=== PATIENT | male | born 1940 | race Caucasian/White ===

== ENCOUNTER 2020-03-21 18:08 | Inpatient (IN) ==
[2020-03-21] MEDS ORDERED: SODIUM CHLORIDE 0.9% 500 ML IV SCH (18:45)
--- NOTE | 2020-03-21 18:45 | Emergency Department Note ---
Impression & Plan Dysphagia ED Provider Note INFORMANT: [Patient] ED PROVIDER(S): See Balderas MD CHIEF COMPLAINT: Difficulty swallowing PLAN: Disposition: Admitted Condition: [Good] MEDICAL DECISION MAKING: Patient presented emerge department because of dysphasia. On physical examination he did have some fullness in the right neck. He had blood work and imaging ordered. ECG revealed a normal sinus rhythm. His CBC showed a slight leukocytosis. Chemistry panel was unremarkable. CT imaging of the neck raised concerns for significant mass on the right side of the thyroid extending into the superior mediastinum. It appears to displace the esophagus. This raises concerns that the mass is the cause for the dysphasia. Radiology also noted a clotted appearance to the left vertebral. The patient does not have any significant symptoms to suggest VBI or CVA. 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 Given his inability to swallow and eat adequately I discussed further management in the hospital. The patient and were in agreement. [facility] The patient was evaluated in the ER by for further management. Triage Nursing notes reviewed and agree them. [Additional history obtained from] patient's Vital Signs: reviewed and remarkable for [no significant abnormalities] Differential diagnosis: Esophageal stricture, mass, esophageal rupture, GERD, cholecystitis, pancreatitis, musculoskeletal, as well as other pathologies. Diagnostics interpreted by me: ECG: Rate: 67 Rhythm:Normal sinus Barnhart:Normal QRS:Normal ST segements:No elevation or depression Other:No PACs or PVCs Cardiac Monitoring:Cardiac monitoring ordered by me: The patient was placed on continuous cardiac monitoring and observed. It revealed a normal sinus rhythm at 71beats per minute without ectopy or evidence of dysrhythmia. Imaging studies: Chest x-ray. Findings: A chest x-ray was performed and revealed no pneumothorax, effusion, infiltrate, pulmonary edema, free air under the diaphragm, or wide mediastinum. Moderate cardiomegaly noted. Impression: No acute disease. CT imaging of the neck revealed a large mass in the right thyroid. I refer you to the EMR for further details. [facility]ation[facility] HPI: The patient is a 80 year old male who presents to the Emergency Room with complaints of weeks of difficulty swallowing solids. Liquids go fine. The patient also notes the following associated symptoms, mild SOB for months. The patient has found no relieving factors. Current pain is rated as 0/10. He is supposed to have an EGD 8/3 but doesn't feel he can wait. Pt denies LOC, hea dache, fevers, chills, diaphoresis, visual changes, neck pain, chest pain, breathing difficulties, nausea, vomiting, abdominal pain, back pain, melena, hematochezia, urinary symptoms, numbness, weakness, lymphadenopathy, rash, or other complaints. ROS: See above HPI for pertinent positives & negatives. A total of [10] systems reviewed and were otherwise negative. PAST MEDICAL HISTORY:[See Below] HTN, Cholesterol PAST SURGICAL HISTORY:[See Below] FAMILY HISTORY:[See Below] SOCIAL HISTORY:[See Below]. HOME MEDICATIONS:[See Below] ALLERGIES:[See Below] VITALS:[See Below] PHYSICAL EXAMINATION: GENERAL: Awake, alert, well-appearing, in no distress HENT: Normocephalic, atraumatic. Oropharynx unremarkable. EYES: Normal conjunctiva. Sclera non-icteric. NECK: Inspection normal. Non-tender. Supple. No nuchal rigidity. FROM. No masses. RESPIRATORY: Clear to auscultation. No wheezes. No rales. Normal respiratory effort. CARDIAC: Normal rate. Normal rhythm. No murmurs. No rubs. Extremities warm and well perfused. Pulses equal. No JVD. GI: Soft, non-distended. No tenderness to palpation. No rebound or guarding. No masses. RECTAL: Deferred. MUSCULOSKELETAL: Atraumatic. Chest examination reveals no tenderness. The back is symmetrical on inspection without obvious abnormality. There is no CVA tenderness to palpation. No joint edema. LOWER EXTREMITIES: Calves are equal size bilaterally and non-tender. Trace edema. No discoloration. NEURO: Normal sensorium. No sensory or motor deficits noted. SKIN: No rash or jaundice noted. ED COURSE: PDMP:[reviewed and no issues] [Critical Care:] [None] See Balderas MD Past Med/Surg History Social History Smoking Status: Never smoker Hx Alcohol Use: Yes Alcohol type: beer Hx Substance Use: No Preferred Language: Wolof Communication Ability: Effective Geophysical Data Technician Required: No Beliefs That Will Affect Care: None Current Living Situation: Spouse and Family Other Information That Helps Us Care for You: No Feels Safe at Home: Yes Safety Concerns: Feels Safe At This Time Allergies Allergies Allergy/AdvReac Type Severity Reaction Status Date / Time Qhzmnlm-[id number]-Vxn Reductase Allergy Severe MUSCLE AND Verified 03/21/20 19:12 Inhibitor JOINT PAIN nifedipine [From Procardia] Allergy Intermediate ITCHY HIVES Verified 03/21/20 19:12 Home Meds Home Medications Medication Instructions Recorded Confirmed allopurinol 100 mg PO DAILY 03/21/20 03/21/20 amlodipine-benazepril 1 cap PO DAILY 03/21/20 03/21/20 colesevelam 1,250 mg PO DAILY 03/21/20 03/21/20 ergocalciferol (vitamin D2) 1,250 mcg PO MONTHLY 03/21/20 03/21/20 [Vitamin D2] ezetimibe [Zetia] 10 mg PO DAILY 03/21/20 03/21/20 hydrochlorothiazide 12.5 mg PO 3XWK 03/21/20 03/21/20 metoprolol succinate 50 mg PO DAILY 03/21/20 03/21/20 pantoprazole 20 mg PO DAILYBB 03/21/20 03/21/20 Results & Data (ED) Vital Signs Vital Signs - 24 hr 03/21/20 18:10 03/21/20 19:08 03/21/20 19:31 Temperature 36.8 C Temperature Source Oral Pulse Rate 87 66 69 Pulse Rate [Right Finger] Pulse Rate from SpO2 Sensor 65 69 Pulse Rhythm Regular Pulse Strength Normal Respiratory Rate 20 17 16 Respiratory Effort / Characteristics Non-Labored Spontaneous Respiratory Depth Normal Respiratory Pattern Regular Blood Pressure 169/103 H Blood Pressure [Right Arm] Blood Pressure Mean 125 Blood Pressure Mean [Right Arm] Blood Pressure Position Sitting Pulse Oximetry 169 H 97 97 Oxygen Delivery Method Room Air Sepsis Recent Fever Within 48 Hours No Sepsis New/Unexplained Change in Mental Status N/A Sepsis Action Taken by Nursing No Action Required 03/21/20 19:48 03/21/20 19:50 03/21/20 20:01 Temperature Temperature Source Pulse Rate 67 65 62 Pulse Rate [Right Finger] Pulse Rate from SpO2 Sensor 68 64 61 Pulse Rhythm Pulse Strength Respiratory Rate 17 14 13 Respiratory Effort / Characteristics Respiratory Depth Respiratory Pattern Blood Pressure Blood Pressure [Right Arm] Blood Pressure Mean Blood Pressure Mean [Right Arm] Blood Pressure Position Pulse Oximetry 96 97 98 Oxygen Delivery Method Sepsis Recent Fever Within 48 Hours Sepsis New/Unexplained Change in Mental Status Sepsis Action Taken by Nursing 03/21/20 20:10 03/21/20 22:01 Temperature Temperature Source Pulse Rate 61 Pulse Rate [Right Finger] 85 Pulse Rate from SpO2 Sensor 62 Pulse Rhythm Pulse Strength Respiratory Rate 17 19 Respiratory Effort / Characteristics Respiratory Depth Respiratory Pattern Blood Pressure Blood Pressure [Right Arm] 128/85 Blood Pressure Mean Blood Pressure Mean [Right Arm] 99 Blood Pressure Position Pulse Oximetry 96 96 Oxygen Delivery Method Sepsis Recent Fever Within 48 Hours Sepsis New/Unexplained Change in Mental Status Sepsis Action Taken by Nursing Laboratory Data Result diagrams: 03/21/20 19:04 03/21/20 19:04 Lab Results 03/21/20 03/21/20 Range/Units 19:04 19:04 WBC 11.15 H (4.8-10.8) K/uL RBC 5.36 (4.7-6.1) M/uL Hgb 16.3 (14.0-18.0) g/dL Hct 47.2 (42-52) % MCV 88.1 (80-100) fL MCH 30.4 (25-34) pg MCHC 34.5 (32-36) g/dL RDW Std Deviation 44.0 (36.4-46.3) fL RDW Coeff of Davie 13.6 (11.5-14.5) % Plt Count 224 (130-400) K/uL MPV 9.4 (7.4-10.4) fL Immature Gran % (Auto) 0.7 % Neut % (Auto) 71.0 % Lymph % (Auto) 18.7 % Bath % (Auto) 8.5 % Eos % (Auto) 1.0 % Baso % (Auto) 0.1 % Neut # (Auto) 7.91 H (1.4-6.5) K/uL Lymph # (Auto) 2.09 (1.2-3.4) K/uL Bath # (Auto) 0.95 H (0.11-0.59) K/uL Eos # (Auto) 0.11 (0-0.5) K/uL Baso # (Auto) 0.01 (0-0.2) K/uL Immature Gran # (Auto) 0.08 H (0.00-0.02) K/uL Sodium 141 (136-145) mmol/L Potassium 3.9 (3.5-5.1) mmol/L Chloride 107 (98-107) mmol/L Carbon Dioxide 26 (21-32) mmol/L Anion Gap 8.0 (3-11) BUN 20 H (7-18) mg/dl Creatinine 1.36 (0.6-1.4) mg/dl Est Cr Clr Drug Dosing 58.8 ml/min Est GFR ( Amer) 57.0 Est GFR (Non-Af Amer) 49.1 BUN/Creatinine Ratio 14.8 (10-20) Glucose 100 H (70-99) mg/dl Calcium 8.8 (8.5-10.1) mg/dl Magnesium 2.1 (1.8-2.4) mg/dl Total Bilirubin 0.7 (0.2-1) mg/dl AST 15 (15-37) U/L ALT 25 (12-78) U/L Alkaline Phosphatase 185 H (45-117) U/L Total Protein 7.2 (6.4-8.2) gm/dl Albumin 3.5 (3.4-5.0) gm/dl Globulin 3.7 (2.5-4.0) gm/dl Albumin/Globulin Ratio 0.9 (0.9-2) TSH 4.400 (0.300-4.500) uIu/ml Administered Medications Dextrose/Sodium Chloride (D5w And Nss) 1,000 mls @ 100 mls/hr IV .Q10H SHOSHANA Stop: 04/20/20 23:40 Last Admin: 03/22/20 00:29 Dose: 100 mls/hr Documented by: [id number] Miscellaneous (Order Awaiting Action) 1 ea N/A QS SHOSHANA Stop: 04/21/20 00:00 Last Admin: 03/22/20 00:32 Dose: Not Given Documented by: [id number] Discontinued Medications Sodium Chloride (Nss) 500 mls @ 999 mls/hr IV .Q31M SHOSHANA Stop: 03/21/20 19:15 Last Infusion: 03/21/20 19:37 Dose: 0 mls/hr Documented by: [id number] Admin: 03/21/20 19:07 Dose: 999 mls/hr Documented by: [id number] Ioversol (Optiray 320 100ml) 90 ml IV ONCE PRN PRN Reason: Interaction Checking Stop: 03/25/20 19:43 Last Admin: 03/21/20 19:44 Dose: 90 ml Documented by: [id number] Discharge Plan Visit Data *Final* Discharge Date/Time: 03/21/20 23:12 Chief Complaint: Illness Stated Complaint: DIFFICULTY SWALLOWING ED Provider: See Balderas Discharge Problem: Dysphagia Patient Disposition: Admitted As Inpatient Discharge Instructions Interventions: ED Discharge Assessment Last Done: 03/21/20 23:12
[2020-03-21 19:11] LABS: Basophils # (auto) 0.01 K/uL (0-0.2); Basophils % (auto) 0.1 %; Eosinophils # (auto) 0.11 K/uL (0-0.5); Hematocrit (blood only) 47.2 % (42-52); Hemoglobin 16.3 g/dL (14.0-18.0); Immature Granulocytes # (auto) 0.08 K/uL (0.00-0.02); Immature Granulocytes % (auto) 0.7 %; Lymphocytes # (auto) 2.09 K/uL (1.2-3.4); Lymphocytes % (auto) 18.7 %; Mean Corpuscular Hemoglobin 30.4 pg (25-34); Mean Corpuscular Hgb Conc 34.5 g/dL (32-36); Mean Corpuscular Volume 88.1 fL (80-100); Mean Platelet Volume 9.4 fL (7.4-10.4); Monocytes # (auto) 0.95 K/uL (0.11-0.59); Monocytes % (auto) 8.5 %; Neutrophils # (auto) 7.91 K/uL (1.4-6.5); Platelet Count 224 K/uL (130-400); RDW Coefficient of Variation 13.6 % (11.5-14.5); Red Blood Count 5.36 M/uL (4.7-6.1); White Blood Count 11.15 K/uL (4.8-10.8)
[2020-03-21 19:28] LABS: Albumin Level 3.5 gm/dl (3.4-5.0); BUN Creatinine Ratio 14.8 (10-20); Calcium 8.8 mg/dl (8.5-10.1); Creatinine Clr Calc Pharmacy 58.8 ml/min; Est GFR (Non-African American) 49.1; Magnesium 2.1 mg/dl (1.8-2.4); Potassium 3.9 mmol/L (3.5-5.1)
--- NOTE | 2020-03-21 19:38 | XRay Report ---
SINGLE VIEW CHEST CLINICAL HISTORY: Generalized weakness. FINDINGS: 2 AP, portable, upright chest radiographs are obtained. No prior studies are available for comparison at the time of dictation. The examination is degraded by portable technique and patient ro tation. The heart is enlarged noting atherosclerotic calcification of the thoracic aorta. There is m ild pulmonary vascular congestion. 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 Atelectasis is noted at the lung bases. No airspace consolidation or lar ge pleural effusion is identified. No pneumothorax is seen. The skeletal structures are osteopenic. T he bony thorax is grossly intact. IMPRESSION: Cardiomegaly with mild pulmonary vascular congestion. ACT 112: Negative or not required by law. Electronically signed by: Brenden Crouch M.D. 03/21/2020 7:36 PM
[2020-03-21 19:39] LABS: Albumin Globulin Ratio 0.9 (0.9-2); Bilirubin,Total 0.7 mg/dl (0.2-1); Globulin 3.7 gm/dl (2.5-4.0); Thyroid Stimulating Hormone 4.4 uIu/ml (0.300-4.500); Total Protein 7.2 gm/dl (6.4-8.2)
[2020-03-21] MEDS ORDERED: IOVERSOL 100ml IV PRN (19:44)
--- NOTE | 2020-03-21 20:00 | CT Scan Report ---
CT SCAN OF THE NECK WITH IV CONTRAST CLINICAL HISTORY: Dysphagia. COMPARISON STUDY: No priors. TECHNIQUE: Following the IV administration of 90 cc of Optiray 320, CT scan of the soft tissues of th e neck was performed from the skull base to the upper chest. Images are reviewed in the axial, sagitt al, and coronal planes. IV contrast was administered without complication. A dose lowering techniqu e was utilized adhering to the principles of ALARA. CT DOSE: 696.75 mGy.cm FINDINGS: Pharynx: The nasopharynx, oropharynx, and laryngeal pharynx are normal in appearance. The pharyngeal airway is widely patent. There is no evidence of mass lesion. The vocal cords are symmetric. The para pharyngeal fat is well maintained. The prevertebral/retropharyngeal soft tissues are within normal li mits. The epiglottis is normal. Lymphadenopathy: No cervical lymphadenopathy is seen Thyroid: The right lobe of the thyroid gland is enlarged and heterogeneous. A 4.5 cm nodule extends i nferiorly from the right lobe into the superior mediastinum. Salivary glands: The parotid and submandibular glands are within normal limits. Brain parenchyma: The visualized brain parenchyma at the skull base is normal in appearance. Vascular structures: The carotid arteries and jugular veins are patent bilaterally. Atherosclerotic p laque is seen in the carotid bulbs. 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 This is reconstituted via retrograde flow below the basilar. The left vertebral artery in the neck is diminutive but patent. Skeletal structures: The skeletal structures are osteopenic. Imaged portions of the calvarium at the skull base are within normal limits. The cervical spine appears intact noting multilevel spondylosis. No lytic or blastic lesion is seen. Orbits: The bony orbits are intact. Orbital contents are normal as visualized. Sinuses and mastoids: There is trace mucosal thickening within the right maxillary antrum. The remain ing paranasal sinuses are clear. The mastoid air cells are well pneumatized. Lung apices: There is a punctate calcified granuloma at the left apex. Visualized apical lung parench yma is otherwise clear. IMPRESSION: 1. The pharyngeal soft tissues are normal as imaged. 2. The right lobe of the thyroid gland is enlarged and heterogeneous, with a 4.5 cm nodule extending inferiorly from the right lobe into the superior mediastinum. Consider nonemergent follow-up with a d edicated thyroid ultrasound. 3. 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 This is of indeterminate chronicity. 4. Additional findings as above. ACT 112: Negative or not required by law. Electronically signed by: Brenden Crouch M.D. 03/21/2020 7:59 PM
[2020-03-21] MEDS ORDERED: ONDANSETRON INJ 2 MG/ML 2 ML VIAL IV PRN (23:41)
[2020-03-21] MEDS ORDERED: ACETAMINOPHEN 325 MG TAB PO PRN (23:41)
[2020-03-22] MEDS: D5W AND NSS 1,000 ML IV SCH ×2 (00:29→09:48)
[2020-03-22] MEDS: COLESEVELAM~ORDER AWAITING ACTION SCH ×3 (00:32→17:15)
[2020-03-22 02:56] LABS: Appearance Urine Clear (Clear); Bacteria Urine Automated Negative (Negative); Bilirubin Urine Negative (Negative); Blood Urine Trace (Negative); Cast Urine Automated 0 /lpf (0-5); Color Urine Yellow; Glucose Urine UA Negative (Negative); Ketones Urine 1+ (Negative); Leukocyte Esterase Urine Negative (Negative); Nitrite Urine Negative (Negative); Protein Urine Negative (Negative); RBC Urine Automated 0-4 /hpf (0-4); Specific Gravity Urine > 1.045 (1.000-1.030); Urobilinogen Urine Negative (Negative); WBC Urine Automated 0 /hpf (0-5)
--- NOTE | 2020-03-22 04:01 | History and Physical Report ---
DATE OF ADMISSION: 03/21/2020 CHIEF COMPLAINT: Dysphagia for solids. HISTORY OF PRESENT ILLNESS: This is a 80-year-old male with past medical history significant for gout, hypertension, hyperlipidemia, GERD, who lives with his , who presents with dysphagia. As per the , dysphagia is going on for more than a month, it is mostly for solids. She thinks, he lost about 10-15 pounds in last 1 month eating only one meal a day. He is okay with liquids, but he is having difficulty swallowing the solids. He has an appointment with GI on 03/29/2020, but because he is not getting better, he came to the ER. Currently, resting comfortably and hemodynamically stable. The patient denies any chest pain. He has some shortness of breath on exertion. No nausea, no vomiting, no headache, no blurred vision, no earache, no runny nose, no sore throat. No loss of sense of smell or taste. No fever, no chills, no abdominal pain. Normal bowel and bladder movements. No hematuria, no blood in stools or black stools. 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 He says he does not feel his left leg much and that is nothing new . ALLERGIES: STATINS, HMG-REDUCTASE INHIBITORS, NIFEDIPINE. PAST MEDICAL HISTORY: As mentioned above. 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 MEDICATIONS: The patient is on allopurinol 100 mg p.o. daily, amlodipine/benazepril 1 capsule p.o. daily, colesevelam 1250 mg p.o. daily, vitamin D 1250 mcg p.o. monthly, Zetia 10 mg p.o. daily, hydrochlorothiazide 12.5 mg p.o. 3 times a week, metoprolol succinate 50 mg p.o. daily, Protonix 20 mg p.o. daily. FAMILY HISTORY: No family history on file. SOCIAL HISTORY: , lives with . No smoking, no alcohol, no drug use. REVIEW OF SYMPTOMS: As per HPI. Rest of review of systems negative. PHYSICAL EXAMINATION: GENERAL: The patient is of moderate build, not in acute distress. VITAL SIGNS: Temperature 36.8, pulse 85, respiratory rate 19, blood pressure 128/85, oxygen 96% on room air. HEENT: No pallor, no icterus. Pupils equal, round, reactive to light. Oral mucosa moist. NECK: . No JVD, no carotid bruits. CARDIOVASCULAR: S1, S2, heard, regular rate and rhythm, no murmur, no gallop. RESPIRATORY SYSTEM: Normal AP diameter. No accessory muscle use. No wheezing, no crackles. ABDOMEN: Soft, bowel sounds present, nontender. No distention. CENTRAL NERVOUS SYSTEM: Cranial nerves II-XII grossly intact, nonfocal. EXTREMITIES: No edema, no erythema. LABORATORY DATA: WBC 11.1, hemoglobin 16.3, hematocrit 47.2, platelets 224. Sodium 141, potassium 3.9, chloride 107, bicarbonate 26, BUN 20, creatinine 1.36, serum glucose 100, calcium 8.8. Magnesium 2.1, total bilirubin 0.7, AST 15, ALT 25, alkaline phosphatase 185. TSH 4.4. IMAGING: Chest x-ray: Cardiomegaly with mild pulmonary vascular congestion. Soft tissue of the neck shows triangle of soft tissues are normal. The right lobe of thyroid gland is enlarged and heterogeneous with 4.1 cm nodule extending inferiorly from the right lobe into the superior mediastinum. 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 This is of indeterminate chronicity. EKG: Normal sinus rhythm, rate of 67 with no previous EKG available. ASSESSMENT AND PLAN: This is a 80-year-old male who presents with dysphagia to solids. 1. Dysphagia to solids going for more than 1 month now. Images of soft tissue neck shows right thyroid lobe enlarged extending into the superior mediastinum.Probably compressing the esophagus. The patient had no shortness of breath .Ongoing dysphagia to solids. He is able to swallow liquids okay. 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 The patient had surgery back of his neck 20 years ago.Most likely his symptoms could be from the thyroid lobe mass. We will consult ENT and GI. Keep him n.p.o., IV fluids with D5 normal saline 100 mL per hour and monitor in the medical floor. 2. Hypertension. Continue metoprolol and amlodipine, benazepril. Hold his hydrochlorothiazide, monitor the blood pressure. 3. Hyperlipidemia. Continue colesevelam. 4. Gout. Continue allopurinol. 5. Gastroesophageal reflux disease. Continue his Protonix. 6. Deep venous thrombosis prophylaxis, sequential compression devices. DISPOSITION: Observe in medical floor. Expect discharge home and follow with his family doctor. Level 1 full code. MTDD
[2020-03-22 06:19] LABS: Basophils # (auto) 0.03 K/uL (0-0.2); Basophils % (auto) 0.3 %; Eosinophils # (auto) 0.12 K/uL (0-0.5); Eosinophils % (auto) 1.1 %; Hematocrit (blood only) 49.1 % (42-52); Hemoglobin 16.7 g/dL (14.0-18.0); Immature Granulocytes # (auto) 0.08 K/uL (0.00-0.02); Immature Granulocytes % (auto) 0.7 %; Lymphocytes # (auto) 2.27 K/uL (1.2-3.4); Lymphocytes % (auto) 20.8 %; Mean Corpuscular Hemoglobin 30.2 pg (25-34); Mean Corpuscular Volume 88.8 fL (80-100); Mean Platelet Volume 9.2 fL (7.4-10.4); Monocytes # (auto) 1.08 K/uL (0.11-0.59); Monocytes % (auto) 9.9 %; Neutrophils # (auto) 7.32 K/uL (1.4-6.5); Neutrophils % (auto) 67.2 %; Platelet Count 217 K/uL (130-400); RDW Coefficient of Variation 13.7 % (11.5-14.5); RDW Standard Deviation 44.8 fL (36.4-46.3); Red Blood Count 5.53 M/uL (4.7-6.1)
[2020-03-22] MEDS ORDERED: PANTOprazole 40 MG TAB PO SCH (06:30)
[2020-03-22 06:54] LABS: BUN Creatinine Ratio 12.7 (10-20); Calcium 8.9 mg/dl (8.5-10.1); Creatinine Clr Calc Pharmacy 61.6 ml/min; Est GFR (African American) 60.7; Est GFR (Non-African American) 52.4; Magnesium 2.1 mg/dl (1.8-2.4); Potassium 3.6 mmol/L (3.5-5.1)
[2020-03-22 07:30] LABS: INR 1.1 (0.9-1.1); Partial Thromboplastin Time 27.9 Seconds (21.0-31.0); Prothrombin Time 11.6 Seconds (9.0-12.0)
[2020-03-22] MEDS: AMLODIPINE BESYLATE 5 MG TAB PO SCH (09:42)
[2020-03-22] MEDS: ENALAPRIL MALEATE 10 MG TAB PO SCH (09:42)
[2020-03-22] MEDS: EZETIMIBE 10 MG TABLET PO SCH (09:42)
[2020-03-22] MEDS: allopurinoL 100 MG TAB PO SCH (09:42)
[2020-03-22] MEDS: METOPROLOL SUCC 50MG EXT REL TAB PO SCH (09:46)
--- NOTE | 2020-03-22 10:14 | Hospitalist Progress Note ---
Date of Service March 22, 2020 Assessment & Plan (1) Dysphagia: Dysphagia -dysphagia to solids going for more than 1 month now. Images of soft tissue neck shows right thyroid lobe enlarged extending into the superior mediastinum.Probably compressing the esophagus. 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 The patient had surgery back of his neck 20 years ago. -currently is NPO with IV fluids with dextrose and awaiting for evaluation by gastroenterology for upper EGD -ENT consult also requested to evaluate if swallowing symptoms could be from the thyroid lobe mass. Hypertension -Continue metoprolol and amlodipine, benazepril. Hold the hydrochlorothiazide for now Hyperlipidemia -can continue colesevelam. Gout -can continue allopurinol Gastroesophageal reflux disease -can be on Protonix Deep venous thrombosis prophylaxis, sequential compression devices. Admission and Anticipated Discharge Date Admission Date: March 21, 2020 Subjective Main issue is that patient has had difficulties eating food such as sandwiches in the past when he felt like food would be sticking in the throat. he denies problems with swallowing liquids denies choking. no coughing. no shortness of breath. on room air. no chest pain. no dizziness. no headache currently is NPO with IV fluids with dextrose and awaiting for evaluation by gastroenterology for upper EGD Review of Systems Review of Systems: All systems reviewed & are unremarkable except as noted in Subjective Physical Exam Constitutional: comfortable Eyes: PERRL, conjunctivae normal, anicteric sclerae EOM intact bilaterally ENMT: external ear and nose normal, oropharynx normal Neck: trachea midline, no thyromegaly normal visual inspection Respiratory: normal respiratory effort, lungs clear to auscultation Cardiovascular: Rate/Rhythm: + bradycardic Gastrointestinal (Abdomen): normal bowel sounds, soft, nontender, no hepatosplenomegaly Musculoskeletal: Head/Neck/Chest: normocephalic and head atraumatic Neurologic: PERRL, EOMI, accommodation nl, no face palsy, no dysarthria CN's II-XI intact bilaterally Psychiatric: A+Ox3, euthymic affect Results & Data Results & Data ([facility]) Vital Signs (Past 12 Hours) Vital Signs Temp Pulse Resp BP Pulse Ox 03/22/20 08:04 36.7 C 62 16 119/76 95 03/21/20 23:40 36.5 C 68 16 155/89 H 94 03/21/20 23:35 36.5 C 65 16 155/89 H 94
--- NOTE | 2020-03-22 13:58 | Anesthesiology Consultation ---
Date of Service March 22, 2020 Assessment & Plan (1) Encounter for pre-operative examination: History Surgery Operation Date: 03/22/20 14:30 Proposed Procedures p Esophagogastroduodenoscopy Dr Yesi Key Height/Weight Height: 5 ft 11 in Weight: 121.5 kg Allergies Allergy/AdvReac Type Severity Reaction Status Date / Time [id number]-[id number] Reductase Allergy Severe MUSCLE AND Verified 03/21/20 19:12 Inhibitor JOINT PAIN nifedipine [From Procardia] Allergy Intermediate ITCHY HIVES Verified 03/21/20 19:12 Medications Home Medications Medication Instructions Recorded Confirmed Last Taken allopurinol 100 mg PO DAILY 03/21/20 03/21/20 03/21/20 amlodipine-benazepril 1 cap PO DAILY 03/21/20 03/21/20 03/21/20 colesevelam 1,250 mg PO DAILY 03/21/20 03/21/20 03/21/20 ergocalciferol (vitamin D2) 1,250 mcg PO MONTHLY 03/21/20 03/21/20 02/25/20 [Vitamin D2] ezetimibe [Zetia] 10 mg PO DAILY 03/21/20 03/21/20 03/21/20 hydrochlorothiazide 12.5 mg PO 3XWK 03/21/20 03/21/20 03/19/20 metoprolol succinate 50 mg PO DAILY 03/21/20 03/21/20 03/21/20 pantoprazole 20 mg PO DAILYBB 03/21/20 03/21/20 03/21/20 Active Medications Generic Name Dose Route Start Last Admin Trade Name Loraine PRN Reason Stop Dose Admin Allopurinol 100 mg 03/22/20 09:00 03/22/20 09:42 Zyloprim PO 04/21/20 08:59 100 mg DAILY SHOSHANA Administration Amlodipine Besylate 5 mg 03/22/20 09:00 03/22/20 09:42 Norvasc PO 04/21/20 08:59 5 mg DAILY SHOSHANA Administration Ezetimibe 10 mg 03/22/20 09:00 03/22/20 09:42 Zetia PO 04/21/20 08:59 10 mg DAILY SHOSHANA Administration Enalapril Maleate 10 mg 03/22/20 09:00 03/22/20 09:42 Vasotec PO 04/21/20 08:59 10 mg DAILY SHOSHANA Administration Dextrose/Sodium Chloride 1,000 mls @ 60 mls/hr 03/21/20 23:41 03/22/20 13:30 D5w And Nss IV 04/20/20 23:40 0 mls/hr .[id number] SHOSHANA Infusion Metoprolol Succinate 50 mg 03/22/20 09:00 03/22/20 09:46 Toprol Xl PO 04/21/20 08:59 Not Given DAILY SHOSHANA Miscellaneous 1 ea 03/22/20 00:00 03/22/20 09:41 Order Awaiting Action N/A 04/21/20 00:00 Not Given QS SHOSHANA NPO Date Last Intake of Fluids: 03/22/20 Time Last Intake of Fluids: 11:00 Last Intake of Fluids Comment: sips and chips Date Last Intake of Solids: 03/21/20 Time Last Intake of Solids: 08:00 Past Medical History Medical History (Updated 03/22/20 @ 13:56 by Bethany Remy MD) Dysphagia (Acute) Encounter for pre-operative examination GERD (gastroesophageal reflux disease) Gout Hyperlipidemia Hypertension Social History Smoking Status: Never smoker Hx Alcohol Use: Yes Alcohol type: beer alcohol intake frequency: holidays/special occasions only Hx Substance Use: No Physical Exam Vital Signs Last Vital Signs Temp 36.8 C 03/22/20 13:51 Pulse 63 03/22/20 13:51 Resp 18 03/22/20 13:51 BP 125/85 03/22/20 13:51 Pulse Ox 95 03/22/20 13:51 Testing Laboratory Results 03/22/20 06:06 03/22/20 06:06 PT 11.6 Seconds (9.0-12.0) 03/22/20 07:03 INR 1.1 (0.9-1.1) 03/22/20 07:03 APTT 27.9 Seconds (21.0-31.0) 03/22/20 07:03 Urine Color Yellow 03/22/20 02:47 Urine Appearance Clear (Clear) 03/22/20 02:47 Urine pH 7.0 (4.5-7.5) 03/22/20 02:47 Ur Specific Wilder > 1.045 (1.000-1.030) H 03/22/20 02:47 Urine Protein Negative (Negative) 03/22/20 02:47 Urine Glucose (UA) Negative (Negative) 03/22/20 02:47 Urine Ketones 1+ (Negative) H 03/22/20 02:47 Urine Nitrite Negative (Negative) 03/22/20 02:47 Ur Leukocyte Esterase Negative (Negative) 03/22/20 02:47 Urine WBC (Auto) 0 /hpf (0-5) 03/22/20 02:47 Urine RBC (Auto) 0-4 /hpf (0-4) 03/22/20 02:47 U Hyaline Cast (Auto) 0 /lpf (0-5) 03/22/20 02:47 U Epithel Cells (Auto) 5-10 /lpf (0-5) H 03/22/20 02:47 Urine Bacteria (Auto) Negative (Negative) 03/22/20 02:47 Electrocardiogram Date: 03/21/20 Findings: + NSR @ Chest X-Ray Date: 03/21/20 IMPRESSION: Cardiomegaly with mild pulmonary vascular congestion.
[2020-03-22] MEDS ORDERED: LIDOCAINE HCL 2% 2 ML VIAL/AMP(20MG/ML) INFIL ONE (14:40)
[2020-03-22] MEDS ORDERED: PROPOFOL IV EMULSION 10 MG/ML 20 ML VIAL IV ONE (14:40)
[2020-03-22] MEDS ORDERED: SODIUM CHLORIDE 0.9% 1000ML 1,000 ML IV SCH (14:45)
--- NOTE | 2020-03-22 14:55 | History & Physical Report ---
Date of Service March 22, 2020 History of Present Illness Chief Complaint: Dysphagia Primary Care Provider: Krystle Ariza For EGD Allergies Allergy/AdvReac Type Severity Reaction Status Date / Time Avzicli-Fum-Hzu Reductase Allergy Severe MUSCLE AND Verified 03/21/20 19:12 Inhibitor JOINT PAIN nifedipine [From Procardia] Allergy Intermediate ITCHY HIVES Verified 03/21/20 19:12 Home Medications Home Medications Medication Instructions Recorded Confirmed Type allopurinol 100 mg PO DAILY 03/21/20 03/21/20 History amlodipine-benazepril 1 cap PO DAILY 03/21/20 03/21/20 History colesevelam 1,250 mg PO DAILY 03/21/20 03/21/20 History ergocalciferol (vitamin D2) 1,250 mcg PO MONTHLY 03/21/20 03/21/20 History [Vitamin D2] ezetimibe [Zetia] 10 mg PO DAILY 03/21/20 03/21/20 History hydrochlorothiazide 12.5 mg PO 3XWK 03/21/20 03/21/20 History metoprolol succinate 50 mg PO DAILY 03/21/20 03/21/20 History pantoprazole 20 mg PO DAILYBB 03/21/20 03/21/20 History Past Med/Surg History Medical History (Updated 03/22/20 @ 13:56 by Bethany Remy MD) Dysphagia (Acute) Encounter for pre-operative examination GERD (gastroesophageal reflux disease) Gout Hyperlipidemia Hypertension Social History Smoking Status: Never smoker Hx Alcohol Use: Yes Alcohol type: beer Hx Substance Use: No Preferred Language: Dominican Communication Ability: Effective 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 Hand Required: No Beliefs That Will Affect Care: None Current Living Situation: Spouse and Family Other Information That Helps Us Care for You: No Feels Safe at Home: Yes Safety Concerns: Feels Safe At This Time Physical Exam Constitutional: + obese Respiratory: normal respiratory effort Cardiovascular: Rate/Rhythm: regular rate and regular rhythm Gastrointestinal (Abdomen): Percussion/Palpation: abdomen soft Results & Data Vital Signs (Past 12 Hours) Vital Signs Temp Pulse Resp BP Pulse Ox 03/22/20 13:51 36.8 C 63 18 125/85 95 03/22/20 08:04 36.7 C 62 16 119/76 95 Code Status & VTE Plan VTE Prophylaxis Plan VTE Prophylaxis will be ordered: Yes
--- NOTE | 2020-03-22 15:16 | GI REPORT ---
Patient Name: Kwadwo Miranda Procedure Date: 03/22/2020 2:43 PM Date of : 1940 Admit Type: Inpatient Age: 80 Gender: Male Attending MD: Felice Key MD Procedure: Upper GI endoscopy Providers: Felice Key MD Referring MD: Susanne Mccarty Indications: Dysphagia, Weight loss Medicines: Propofol total dose 200 mg IV, Lidocaine 40 mg IV Complications: No immediate complications. Estimated Blood Loss: Estimated blood loss: none. Procedure: Pre-Anesthesia Assessment: - Prior to the procedure, a History and Physical was performed, and patient medications, allergies and sensitivities were reviewed. The patient's tolerance of previous anesthesia was reviewed. - The risks and benefits of the procedure and the sedation options and risks were discussed with the patient. All questions were answered and informed consent was obtained. After obtaining informed consent, the endoscope was passed under direct vision. Throughout the procedure, the patient's blood pressure, pulse, and oxygen saturations were monitored continuously. The Endoscope was introduced through the mouth, and advanced to the second part of duodenum. The upper GI endoscopy was accomplished without difficulty. The patient tolerated the procedure fairly well. Findings: The Z-line was regular and was found 40 cm from the incisors. The examined esophagus was normal. The entire examined stomach was normal. The examined duodenum was normal. A small [obstructing] [Mucosal Involvement] nodule was found at the vocal cords. Impression: - Z-line regular, 40 cm from the incisors. - Normal esophagus. - Normal stomach. - Normal examined duodenum. - A [Mucosal Involvement] nodule was found at the vocal cords. - No specimens collected. Recommendation: - [facility]. - Perform a video esophagram tomorrow. Felice Key M.D. Felice Key MD 03/22/2020 3:15:53 PM This report has been signed electronically. Note Initiated On: 03/22/2020 2:43 PM Number of Addenda: 0 I attest to the content of the Intraoperative Record and orders documented therein, exceptions below {[id number]}
--- NOTE | 2020-03-22 15:36 | Anesthesiology Progress Note ---
Date of Service March 22, 2020 Anesthesia Post Procedure Vital Signs Vital Signs: Temp Pulse Pulse Resp BP BP BP 03/22/20 15:23 67 18 117/73 03/22/20 15:10 64 18 124/80 03/22/20 13:51 36.8 C 63 18 125/85 03/22/20 08:04 36.7 C 62 16 119/76 03/21/20 23:40 36.5 C 68 16 155/89 H 03/21/20 23:35 36.5 C 65 16 155/89 H 03/21/20 22:01 85 19 128/85 03/21/20 20:10 61 17 03/21/20 20:01 62 13 03/21/20 19:50 65 14 03/21/20 19:48 67 17 03/21/20 19:31 69 16 03/21/20 19:08 66 17 03/21/20 18:10 36.8 C 87 20 169/103 H Pulse Ox 03/22/20 15:23 95 03/22/20 15:10 92 03/22/20 13:51 95 03/22/20 08:04 95 03/21/20 23:40 94 03/21/20 23:35 94 03/21/20 22:01 96 03/21/20 20:10 96 03/21/20 20:01 98 03/21/20 19:50 97 03/21/20 19:48 96 03/21/20 19:31 97 03/21/20 19:08 97 03/21/20 18:10 169 H Pain Intensity Generalized: Pain Intensity: 3 Transfer of Care Handoff Completed per policy Notes Mental Status: alert / awake / arousable and participated in evaluation Patient Amnestic to Procedure: Yes Nausea / Vomiting: adequately controlled Pain: adequately controlled Airway Patency, RR, SpO2: stable & adequate BP & HR: stable & adequate Hydration State: stable & adequate Anesthetic Complications: no major complications apparent and Pt Satisfied with anesthetic care
--- NOTE | 2020-03-22 15:43 | Consultation Report ---
DATE OF CONSULTATION: 03/22/2020 GASTROINTESTINAL CONSULTATION NOTE REASON FOR EVALUATION: Dysphagia for solid foods. HISTORY OF PRESENT ILLNESS: The patient is a 80-year-old man who reports greater than 1-month history of dysphagia, but over the last month it has gotten particularly worse, involves mostly solid foods, and he is having to chew his food well and take small bites and he is afraid to eat and he has lost between 10 and 15 pounds just in the last month alone. He did have a soft tissue CT scan of the neck and chest x-ray, it did show a 4.5 cm nodule in the right lobe of the thyroid, which was not compressing the esophagus or trachea, but no other lesions were seen other than the vertebral artery occlusion. He has been admitted because of these symptoms and GI consultation has been requested to help with evaluation. PAST MEDICAL HISTORY: Remarkable for hypertension, gout, hyperlipidemia, esophageal reflux. MEDICATIONS: Allopurinol, amlodipine, benazepril, vitamin D, Zetia, hydrochlorothiazide, metoprolol and Protonix. ALLERGIES: STATINS, HMG REDUCTASE INHIBITORS AND NIFEDIPINE. FAMILY HISTORY: Negative. SOCIAL HISTORY: The patient is and lives with his . Never smoked, drinks alcohol rarely. REVIEW OF SYSTEMS: Remarkable for some anxiety, difficulty swallowing, weight loss. Remainder is negative. PHYSICAL EXAMINATION: GENERAL: The patient appears awake, alert, in no acute distress. VITAL SIGNS: Normal. He is afebrile. NECK: Showed no palpable mass in the thyroid. HEART: Showed a regular rate and rhythm. LUNGS: Clear. ABDOMEN: Soft. EGD was performed in the endoscopy unit to evaluate his symptoms. He did have some small nodules on his vocal cords, but his esophagus was normal caliber and there were no mass lesions or strictures. The stomach and duodenum were also normal. IMPRESSION AND PLAN: The patient is having difficulty swallowing with a negative EGD. 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 For this reason, I plan on ordering a video swallow to see how he handles food and various consistencies when he tries to swallow as there may be a motility or motor disorder predisposing him for his dysphagia.
--- NOTE | 2020-03-22 20:04 | Ultrasound Report ---
US thyroid CLINICAL HISTORY: Thyromegaly COMPARISON STUDY: CT scan of neck dated 03/21/2020 FINDINGS: The right lobe the thyroid measures 57 x 42 x 25 mm. There is a posterior nodule with retro sternal extension which is difficult to visualize due to its location. It measures approximately 5 x 3 x 3 cm. The left lobe measures 51 x 17 x 16 mm and is mildly heterogeneous in echotexture. IMPRESSION: 1. 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 This measure s 5 cm in maximal diameter. Fine-needle aspiration biopsy is recommended in follow-up. ACT 112: Negative or not required by law. Electronically signed by: Nixon Lind M.D. 03/22/2020 8:03 PM
[2020-03-23] MEDS: COLESEVELAM~ORDER AWAITING ACTION SCH ×2 (00:02→08:26)
[2020-03-23] MEDS ORDERED: PANTOprazole 40 MG TAB PO SCH ×2 (06:30→21:00)
[2020-03-23 06:32] LABS: Basophils # (auto) 0.02 K/uL (0-0.2); Basophils % (auto) 0.2 %; Eosinophils # (auto) 0.27 K/uL (0-0.5); Eosinophils % (auto) 2.7 %; Hematocrit (blood only) 45.6 % (42-52); Hemoglobin 15.3 g/dL (14.0-18.0); Immature Granulocytes # (auto) 0.07 K/uL (0.00-0.02); Immature Granulocytes % (auto) 0.7 %; Lymphocytes # (auto) 2.02 K/uL (1.2-3.4); Lymphocytes % (auto) 20.3 %; Mean Corpuscular Hemoglobin 29.9 pg (25-34); Mean Corpuscular Hgb Conc 33.6 g/dL (32-36); Mean Corpuscular Volume 89.1 fL (80-100); Mean Platelet Volume 9.1 fL (7.4-10.4); Monocytes # (auto) 1.02 K/uL (0.11-0.59); Monocytes % (auto) 10.3 %; Neutrophils # (auto) 6.55 K/uL (1.4-6.5); Neutrophils % (auto) 65.8 %; Platelet Count 175 K/uL (130-400); RDW Coefficient of Variation 13.8 % (11.5-14.5); Red Blood Count 5.12 M/uL (4.7-6.1); White Blood Count 9.95 K/uL (4.8-10.8)
[2020-03-23 07:13] LABS: Albumin Level 2.9 gm/dl (3.4-5.0); BUN Creatinine Ratio 11.8 (10-20); Calcium 8.3 mg/dl (8.5-10.1); Creatinine Clr Calc Pharmacy 64.1 ml/min; Est GFR (African American) 63.7; Est GFR (Non-African American) 54.9
[2020-03-23 07:16] LABS: Albumin Globulin Ratio 0.8 (0.9-2); Bilirubin,Total 0.9 mg/dl (0.2-1); Globulin 3.6 gm/dl (2.5-4.0); Total Protein 6.5 gm/dl (6.4-8.2)
[2020-03-23] MEDS: EZETIMIBE 10 MG TABLET PO SCH (08:31)
[2020-03-23] MEDS: AMLODIPINE BESYLATE 5 MG TAB PO SCH (08:31)
[2020-03-23] MEDS: METOPROLOL SUCC 50MG EXT REL TAB PO SCH (08:32)
[2020-03-23] MEDS: ENALAPRIL MALEATE 10 MG TAB PO SCH (08:32)
[2020-03-23] MEDS: allopurinoL 100 MG TAB PO SCH (08:32)
--- NOTE | 2020-03-23 11:44 | Fluoroscopy Report ---
MODIFIED BARIUM SWALLOW CLINICAL HISTORY: dysphagia with normal EGD COMPARISON STUDY: CT of the neck March 21, 2020. FLUOROSCOPY TIME: 2.1 minutes. TECHNIQUE: A modified barium swallow was performed in conjunction with Speech Pathology. The patient ingested varying consistencies of barium containing material. Video fluoroscopy was performed. FINDINGS: The swallowing mechanism was intact with thin liquids, nectar thick liquids, pudding and cr ackers with paste. No tracheal aspiration was identified. Epiglottic inversion was normal. Laryngeal elevation was normal. IMPRESSION: 1. Intact swallowing mechanism. No tracheal aspiration identified. 2. Full recommendations by speech pathology to follow. ACT 112: Negative or not required by law. Electronically signed by: Kirk Valdez M.D. 03/23/2020 11:43 AM
--- NOTE | 2020-03-23 12:52 | Hospitalist Progress Note ---
Date of Service March 23, 2020 Assessment & Plan (1) Dysphagia: Dysphagia was investigated and oral-pharyngeal dysphagia is rule dout Vocal cord nodule Thyromegaly (thyroid mass/thyroid nodule) Gastroesophageal reflux disease -dysphagia to solids going for more than 1 month now. Images of soft tissue neck shows right thyroid lobe enlarged extending into the superior mediastinum.Probably compressing the esophagus. 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 The patient had surgery back of his neck 20 years ago. -gastroenterology completed the EGD and only found a small obstructing nodule (mucosal involvement) at the vocal cords with no other upper GI abnormality -in regard to the thyroid; [facility], Dr. Brandon Acosta was discussed the case on 03/22/2020 and he suggested outpatient thyroid biopsy with him after thyroid ultrasound -Thyroid ultrasound on 03/22/2020 "The right lobe the thyroid measures 57 x 42 x 25 mm. There is a posterior nodule with retrosternal extension which is difficult to visualize due to its location. It measures approximately 5 x 3 x 3 cm. The left lobe measures 51 x 17 x 16 mm and is mildly heterogeneous in echotexture. IMPRESSION: 1. 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 This measures 5 cm in maximal diameter. Fine-needle aspiration biopsy is recommended in follow-up." and recommended thyroid ultrasound and to schedule with him as outpatient in case of thyroid biopsy. -A CD of the thyroid imaging will be given to patient so he can have the thyroid and vocal cord evaluated by Dr. Acosta in the ENT clinic on 04/02/2020 (1:00 PM Provider Brandon Acosta, Department Otol[facility]) -patient also had formal speech and swallow evaluation with video fluoroscopy study completed on 03/23/2020 and speech therapist reported that patient has no oral-pharyngeal dysphagia but he does have a "globus sensation" and recommended increasing the home dose pantoprazole from 40 mg daily to 40 mg twice a day. -speech and swallow service also recommended that if changes of pantoprazole are not helpful in the future, then a Barium Swallow Study can be considered as outpatient basis Hypertension -Continue metoprolol and amlodipine, benazepril -can resume home dose HCTZ on discharge Hyperlipidemia -continue Zetia. can continue colesevelam at home. Gout -can continue allopurinol Admission and Anticipated Discharge Date Admission Date: March 22, 2020 Subjective patient tolerating the diet and he wishes to go home. his is in agreement no choking. no coughing. no vomiting no abdomen pain. no shortness of breath. no dizziness. no headache. discharge plans and instructions discussed at length Review of Systems Review of Systems: All systems reviewed & are unremarkable except as noted in Subjective Physical Exam Constitutional: comfortable Eyes: PERRL, conjunctivae normal, anicteric sclerae EOM intact bilaterally ENMT: external ear and nose normal, oropharynx normal Neck: trachea midline, no thyromegaly normal visual inspection Respiratory: normal respiratory effort, lungs clear to auscultation Cardiovascular: Rate/Rhythm: + bradycardic Gastrointestinal (Abdomen): normal bowel sounds, soft, nontender, no hepa tosplenomegaly Musculoskeletal: Head/Neck/Chest: normocephalic and head atraumatic Neurologic: PERRL, EOMI, accommodation nl, no face palsy, no dysarthria CN's II-XI intact bilaterally Psychiatric: A+Ox3, euthymic affect Results & Data Results & Data ([facility]) Vital Signs (Past 12 Hours) Vital Signs Temp Pulse Resp BP BP Pulse Ox 03/23/20 08:05 37.0 C 62 18 110/71 94 03/23/20 03:55 36.7 C 57 L 15 124/78 97
--- NOTE | 2020-03-23 13:14 | Discharge Summary ---
Date of Service March 23, 2020 Admission HPI Per Admitting Provider DATE OF ADMISSION: 03/21/2020 CHIEF COMPLAINT: Dysphagia for solids. HISTORY OF PRESENT ILLNESS: This is a 80-year-old male with past medical history significant for gout, hypertension, hyperlipidemia, GERD, who lives with his , who presents with dysphagia. As per the , dysphagia is going on for more than a month, it is mostly for solids. She thinks, he lost about 10-15 pounds in last 1 month eating only one meal a day. He is okay with liquids, but he is having difficulty swallowing the solids. He has an appointment with GI on 03/29/2020, but because he is not getting better, he came to the ER. Currently, resting comfortably and hemodynamically stable. The patient denies any chest pain. He has some shortness of breath on exertion. No nausea, no vomiting, no headache, no blurred vision, no earache, no runny nose, no sore throat. No loss of sense of smell or taste. No fever, no chills, no abdominal pain. Normal bowel and bladder movements. No hematuria, no blood in stools or black stools. 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 He says he does not feel his left leg much and that is nothing new . Principal Diagnosis Dysphagia was investigated and oral-pharyngeal dysphagia is rule dout Vocal cord nodule Thyromegaly (thyroid mass/thyroid nodule) Gastroesophageal reflux disease Discharge Exam Constitutional comfortable Eyes PERRL, conjunctivae normal, anicteric sclerae EOM intact bilaterally ENMT external ear and nose normal, oropharynx normal Neck trachea midline, no thyromegaly normal visual inspection Respiratory normal respiratory effort, lungs clear to auscultation Cardiovascular Rate/Rhythm: + bradycardic Gastrointestinal (Abdomen) normal bowel sounds, soft, nontender, no hepatosplenomegaly Musculoskeletal Head/Neck/Chest: normocephalic and head atraumatic Neurologic PERRL, EOMI, accommodation nl, no face palsy, no dysarthria CN's II-XI intact bilaterally Psychiatric A+Ox3, euthymic affect Discharge Data Allergies Allergy/AdvReac Type Severity Reaction Status Date / Time Comaejr-Wwj-How Reductase Allergy Severe MUSCLE AND Verified 03/21/20 19:12 Inhibitor JOINT PAIN nifedipine [From Procardia] Allergy Intermediate ITCHY HIVES Verified 03/21/20 19:12 Consultations 03/21/20 22:02 ED Decision to Admit Stat 03/21/20 23:41 Consult Case Management - Discharge Planning Routine 03/22/20 08:00 Consult Gastroenterology Routine 03/23/20 12:58 Burn CD for patient Stat Procedures Performed Operation Date: 03/22/20 14:30 Actual Procedures p Esophagogastroduodenoscopy(Left) - Felice Key Ordered Studies 03/21/20 19:17 CT soft tissue neck w con Stat 03/22/20 16:42 US thyroid Routine 03/23/20 08:17 FL video swallow Routine Hospital Course (1) Dysphagia: Dysphagia was investigated and oral-pharyngeal dysphagia is rule dout Vocal cord nodule Thyromegaly (thyroid mass/thyroid nodule) Gastroesophageal reflux disease -dysphagia to solids going for more than 1 month now. Images of soft tissue neck shows right thyroid lobe enlarged extending into the superior mediastinum.Probably compressing the esophagus. 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 The patient had surgery back of his neck 20 years ago. -gastroenterology completed the EGD and only found a small obstructing nodule (mucosal involvement) at the vocal cords with no other upper GI abnormality -in regard to the thyroid; [facility], Dr. Brandon Acosta was discussed the case on 03/22/2020 and he suggested outpatient thyroid biopsy with him after thyroid ultrasound -Thyroid ultrasound on 03/22/2020 "The right lobe the thyroid measures 57 x 42 x 25 mm. There is a posterior nodule with retrosternal extension which is difficult to visualize due to its location. It measures approximately 5 x 3 x 3 cm. The left lobe measures 51 x 17 x 16 mm and is mildly heterogeneous in echotexture. IMPRESSION: 1. 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 This measures 5 cm in maximal diameter. Fine-needle aspiration biopsy is recommended in follow-up." and recommended thyroid ultrasound and to schedule with him as outpatient in case of thyroid biopsy. -A CD of the thyroid imaging will be given to patient so he can have the thyroid and vocal cord evaluated by Dr. Acosta in the ENT clinic on 04/02/2020 (1:00 PM Provider Brandon AcostaDO Department Otolaryngology [facility], [place]) -patient also had formal speech and swallow evaluation with video fluoroscopy study completed on 03/23/2020 and speech therapist reported that patient has no oral-pharyngeal dysphagia but he does have a "globus sensation" and recommended increasing the home dose pantoprazole from 40 mg daily to 40 mg twice a day. -speech and swallow service also recommended that if changes of pantoprazole are not helpful in the future, then a Barium Swallow Study can be considered as outpatient basis Hypertension -Continue metoprolol and amlodipine, benazepril -can resume home dose HCTZ on discharge Hyperlipidemia -continue Zetia. can continue colesevelam at home. Gout -can continue allopurinol Total Time Total Time Spent Total Time Spent (In Minutes): 40 minutes Total Time Includes: Examination of the Patient, Discharge Planning, Medication Reconciliation and Communication With Other Providers Discharge Plan Discharge Items Patient Disposition: Home - Self-Care Reason For Visit: DYSPHAGIA Discharge Diagnosis: Dysphagia was investigated and oral-pharyngeal dysphagia is rule dout Vocal cord nodule Thyromegaly (thyroid mass/thyroid nodule) Gastroesophageal reflux disease Condition on Discharge: Good Activity: Per Instructions section Non-emergency contact: Primary Care Provider and Specialist Call non-emergency contact if: you have any medication questions Follow-up/Referrals: Krystle Ariza [Primary Care Provider] - Diet: Full liquid Diet Comment: patient may increase from full liquid diet to solids Cecy Attending Provider Instructions: take pantoprazole 40 mg twice a day appointment scheduled: 04/02/2020 1:00 PM Provider Brandon Acosta DO Department Otolaryngology [facility] Cecy Distribution Engineer Provider Instructions: Dysphagia was investigated and oral-pharyngeal dysphagia is rule dout Vocal cord nodule Thyromegaly (thyroid mass/thyroid nodule) -dysphagia to solids going for more than 1 month now. Images of soft tissue neck shows right thyroid lobe enlarged extending into the superior mediastinum.Probably compressing the esophagus. 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 The patient had surgery back of his neck 20 years ago. -gastroenterology completed the EGD and only found a small obstructing nodule (mucosal involvement) at the vocal cords with no other upper GI abnormality -in regard to the thyroid; [facility]NT, Dr. Brandon Acosta was discussed the case on 03/22/2020 and he suggested outpatient thyroid biopsy with him after thyroid ultrasound -Thyroid ultrasound on 03/22/2020 "The right lobe the thyroid measures 57 x 42 x 25 mm. There is a posterior nodule with retrosternal extension which is difficult to visualize due to its location. It measures approximately 5 x 3 x 3 cm. The left lobe measures 51 x 17 x 16 mm and is mildly heterogeneous in echotexture. IMPRESSION: 1. 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 This measures 5 cm in maximal diameter. Fine-needle aspiration biopsy is recommended in follow-up." and recommended thyroid ultrasound and to schedule with him as outpatient in case of thyroid biopsy. -A CD of the thyroid imaging will be given to patient so he can have the thyroid and vocal cord evaluated by Dr. Acosta in the ENT clinic on 04/02/2020 (1:00 PM Provider Brandon Acosta, Department Otolaryngology [facility]) -patient also had formal speech and swallow evaluation with video fluoroscopy study completed on 03/23/2020 and speech therapist reported that patient has no oral-pharyngeal dysphagia but he does have a "globus sensation" and recommended increasing the home dose pantoprazole from 40 mg daily to 40 mg twice a day. -speech and swallow service also recommended that if changes of pantoprazole are not helpful in the future, then a Barium Swallow Study can be considered as outpatient basis Hypertension -Continue metoprolol and amlodipine, benazepril -can resume home dose HCTZ on discharge Hyperlipidemia -continue Zetia. can continue colesevelam at home. Gout -can continue allopurinol Pending Studies at Discharge: No Stand-Alone Forms: My [facility] [employer], Smoking Cessation Medications and DC Order Prescriptions: New pantoprazole 40 mg Tablet,Delayed Release (Dr/Ec) 40 mg PO BID 30 Days Qty: 60 RF: 0 Continued metoprolol succinate 50 mg Tablet Extended Release 24 Hr 50 mg PO DAILY RF: 0 allopurinol 100 mg Tablet 100 mg PO DAILY RF: 0 pantoprazole 20 mg Tablet,Delayed Release (Dr/Ec) 20 mg PO DAILYBB RF: 0 amlodipine-benazepril 5-10 mg Capsule 1 cap PO DAILY RF: 0 colesevelam 625 mg Tablet 1,250 mg PO DAILY RF: 0 ergocalciferol (vitamin D2) [Vitamin D2] 1,250 mcg (50,000 unit) Capsule 1,250 mcg PO MONTHLY RF: 0 ezetimibe [Zetia] 10 mg Tablet 10 mg PO DAILY RF: 0 hydrochlorothiazide 12.5 mg Tablet 12.5 mg PO 3XWK RF: 0 Discharge Orders: Discharge Order (Routine); Ordered 03/23/20 Ordered By: Myles Lopez Admission Data Admit Date/Time: 03/22/20 16:54 Attending Provider: Myles Lopez Admit Provider: Lc Jasso Primary Care Provider: Krystle Ariza Other Providers: Lc Jasso ; Felice Key Other Interventions: Discharge Summary Assessment (RN) Last Done: 03/22/20 15:41
[2020-03-23] MEDS ORDERED: COLESEVELAM HCL 625 MG PO SCH (21:00)
--- NOTE | 2020-03-24 16:17 | Electrocardiogram Report ---
Test Reason : Blood Pressure : / mmHG Vent. Rate : 067 BPM Atrial Rate : 067 BPM P-R Int : 170 ms QRS Dur : 090 ms QT Int : 420 ms P-R-T Axes : 041 018 012 degrees QTc Int : 443 ms Normal sinus rhythm Normal ECG No previous ECGs available Confirmed by Maxwell Allen ([id number]) on 03/24/2020 4:16:46 PM Referred By: REFERRED SELF Confirmed By:Maxwell Allen
== END 2020-03-23 13:51 | disposition home or self-care (01) | DRG 645 ==
LOC: ED 18:08 → 3W 18:08 → SUATTDRO 22:22 → 3W 23:12

== ENCOUNTER 2020-05-11 10:15 | Observation (INO) ==
--- NOTE | 2020-04-08 15:33 | PAT Medication Instructions ---
Medication Instructions Date of Service April 08, 2020 Home Medications Medication Instructions Recorded pantoprazole 40 mg PO BID 30 Days #60 tab 03/23/20 allopurinol 100 mg PO QAM amlodipine-benazepril 1 cap PO QAM colesevelam 625 mg PO BID ergocalciferol (vitamin D2) [Vitamin D2] 1,250 mcg PO MONTHLY ezetimibe [Zetia] 10 mg PO QAM hydrochlorothiazide 12.5 mg PO 3XWK metoprolol succinate 50 mg PO HS pantoprazole 40 mg PO BID acetaminophen [Tylenol Extra Strength] 1,000 mg PO BID PRN Continue as directed ergocalciferol (vitamin D2) [Vitamin D2] 1,250 mcg PO MONTHLY (just do not take AM of surgery) STOP taking 48 hours before surgery colesevelam 625 mg PO BID DO NOT take the morning of surgery amlodipine-benazepril 1 cap PO QAM hydrochlorothiazide 12.5 mg PO 3XWK Take morning of surgery With a small sip of water, OTHERWISE NOTHING TO EAT OR DRINK AFTER MIDNIGHT: allopurinol 100 mg PO QAM ezetimibe [Zetia] 10 mg PO QAM pantoprazole 40 mg PO BID acetaminophen [Tylenol Extra Strength] 1,000 mg PO BID PRN (okay to take up to 4 hours prior to surgery if needed) Take evening before surgery metoprolol succinate 50 mg PO HS pantoprazole 40 mg PO BID acetaminophen [Tylenol Extra Strength] 1,000 mg PO BID PRN (if needed) Other Notes If you have any questions please call us at [phone] or [phone] or [phone] or [phone]
--- NOTE | 2020-04-09 11:24 | Anesthesiology Consultation ---
Date of Service April 09, 2020 Assessment & Plan (1) Encounter for pre-operative examination: Chart Review Chart Review: Acceptable Risk for Surgery (pending preop Covid testing ) and Patient seen in Pre Admission Testing Per PAT appt on 04/09/20, patient resides in [facility]. Wears mask, uses good hand hygiene and socially distances. Educated patient to follow up with surgeon's office regarding Covid testing. Educated on importance of self quarantining, social distancing and wearing mask in public both for the patient and household contacts. Teaching & Discussion Pre-Anesthesia Teaching/Discussion Notes: Instructed NPO after midnight before surgery,except medications with 15 cc of water. Medication instructions provided according to the PAT guidelines. History Surgery Operation Date: 05/11/20 10:40 Proposed Procedures p Left Total Knee Arthroplasty - Ramone Turner MD Height/Weight Height: 5 ft 10 in Weight: 123 kg Allergies Allergy/AdvReac Type Severity Reaction Status Date / Time Sxdwqto-Cev-Wgk Reductase Allergy Severe MUSCLE AND Verified 04/07/20 15:40 Inhibitor JOINT PAIN nifedipine [From Procardia] Allergy Intermediate ITCHY HIVES Verified 04/07/20 15:40 Medications Home Medications Medication Instructions Recorded Confirmed Last Taken allopurinol 100 mg PO QAM 03/21/20 04/07/20 03/28/20 08:00 amlodipine-benazepril 1 cap PO QAM 03/21/20 04/07/20 03/28/20 08:00 colesevelam 625 mg PO BID 03/21/20 04/07/20 03/28/20 21:00 ergocalciferol (vitamin D2) 1,250 mcg PO MONTHLY 03/21/20 04/07/20 03/28/20 08:00 [Vitamin D2] ezetimibe [Zetia] 10 mg PO QAM 03/21/20 04/07/20 03/28/20 08:00 hydrochlorothiazide 12.5 mg PO 3XWK 03/21/20 04/07/20 03/28/20 08:00 metoprolol succinate 50 mg PO HS 03/21/20 04/07/20 03/28/20 21:00 pantoprazole 40 mg PO BID 30 Days #60 tab 03/23/20 04/07/20 03/28/20 21:00 acetaminophen [Tylenol Extra 1,000 mg PO BID PRN 04/07/20 04/07/20 Unknown Strength] Wheeled Walker #1 ea 04/09/20 04/09/20 Unknown Past Medical History Medical History Arthritis Dysphagia Chronic issue x months - had EGD- no issues. Possibly due to reflux - increased reflux meds - symptom improved- no choking when eating Enlarged thyroid gland TO HAVE NEEDLE BX 04/2020-[facility] MATHIEU GOMES GERD (gastroesophageal reflux disease) Gout HX- NO RECENT FLARES Hearing deficit Hyperlipidemia Hypertension Obesity Shortness of breath on exertion CHRONIC ISSUE - STABLE - NO ASSOCIATED CHEST PAIN Exercise / Class Metabolic Activity III < 4 Walking/Shop/Light housework (NO SOB OR CHEST PAIN WITH SHORT DISTANCE FLAT SURFACE AMBULATION- WALKS WITH CANE ) Past Family History Family History Other No family history of adverse response to anesthesia Past Surgical History Surgical History History of colonoscopy History of colonoscopy with polypectomy History of esophagogastroduodenoscopy (EGD) recent 03/22/2020 History of lumbar discectomy History of meningioma removed off neck History of tonsillectomy History of tooth extraction Past Anesthesia History No Hx of Anesthesia Complications and No Family Hx of Anesthesia Complications History of PONV No Hx of PONV and No Hx of Motion Sickness Social History Smoking Status: Never smoker Do You Dip or Chew Tobacco: No Hx Alcohol Use: Yes Alcohol type: beer alcohol intake frequency: holidays/special occasions only Hx Substance Use: No substance use type: does not use Review of Systems Patient denies chest pain, shortness of breath, dyspnea on exertion, cough, wheezing, palpitations. No hx of seizures, stroke, ME, apnea/snoring. No hx of blood clots or blood transfusions Physical Exam Vital Signs VITALS BP 112/73 P 57 TEMP 98.5 SP02 93% RESP 16 Constitutional no acute distress ENMT Mouth: no TMJ clicking Thyromental Distance: > or= 3.5 Finger Breadths Mallampati Class: I (smaller airway) Missing molars. Caps to molars Neck + limited neck extension (significant ) Respiratory normal respiratory effort; no respiratory distress Auscultation: lungs clear to auscultation bilaterally; no wheezes Cardiovascular Rate/Rhythm: regular rate and regular rhythm Heart Sounds: no murmur Vessels: no carotid bruit Musculoskeletal Spine: + pain with cervical ROM (mild to moderate ) Neurologic moves all extremities Psychiatric Orientation: alert Testing Laboratory Results 04/09/20 11:49 04/09/20 11:49 PT 11.1 Seconds (9.0-12.0) 04/09/20 11:49 INR 1.1 (0.9-1.1) 04/09/20 11:49 APTT 29.7 Seconds (21.0-31.0) 04/09/20 11:49 Blood Type O Negative 04/09/20 11:49 Antibody Screen NEGATIVE 04/09/20 11:49 Electrocardiogram Date: 03/21/20 Findings: + NSR @ (67) Chest X-Ray Date: 04/09/20 Findings: + NAD Chronic right hilar fullness. Tortuosity and ectasia thoracic aorta. Chronic basilar interstitial change. Pulmonary apices are clear. 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 This measures 5 cm in maximal diameter. Fine-needle aspiration biopsy is recommended in follow-up.
--- NOTE | 2020-04-09 12:10 | XRay Report ---
XR chest Pre-admission PA/Lat CLINICAL HISTORY: pat preoperative COMPARISON STUDY: 03/21/2020 FINDINGS: Chronic right hilar fullness. Tortuosity and ectasia thoracic aorta. Chronic basilar interstitial change. Pulmonary apices are clear. IMPRESSION: Chronic change. No acute process. ACT 112: Negative or not required by law. The above report was generated using voice recognition software. It may contain grammatical, syntax or spelling errors. Electronically signed by: Amor Mckinney M.D. 04/09/2020 12:09 PM
[2020-04-09 12:13] LABS: Basophils # (auto) 0.04 K/uL (0-0.2); Basophils % (auto) 0.4 %; Eosinophils # (auto) 0.34 K/uL (0-0.5); Eosinophils % (auto) 3.6 %; Hematocrit (blood only) 46.9 % (42-52); Hemoglobin 15.4 g/dL (14.0-18.0); Immature Granulocytes # (auto) 0.04 K/uL (0.00-0.02); Immature Granulocytes % (auto) 0.4 %; Lymphocytes # (auto) 1.87 K/uL (1.2-3.4); Mean Corpuscular Hemoglobin 29.5 pg (25-34); Mean Corpuscular Hgb Conc 32.8 g/dL (32-36); Mean Corpuscular Volume 89.8 fL (80-100); Mean Platelet Volume 9.5 fL (7.4-10.4); Monocytes # (auto) 0.53 K/uL (0.11-0.59); Monocytes % (auto) 5.7 %; Neutrophils # (auto) 6.51 K/uL (1.4-6.5); Neutrophils % (auto) 69.9 %; Platelet Count 201 K/uL (130-400); RDW Coefficient of Variation 14.3 % (11.5-14.5); RDW Standard Deviation 47.1 fL (36.4-46.3); Red Blood Count 5.22 M/uL (4.7-6.1); White Blood Count 9.33 K/uL (4.8-10.8)
[2020-04-09 12:27] LABS: INR 1.1 (0.9-1.1); Partial Thromboplastin Ratio 1.1; Partial Thromboplastin Time 29.7 Seconds (21.0-31.0); Prothrombin Time 11.1 Seconds (9.0-12.0)
[2020-04-09 13:35] LABS: Calcium 8.5 mg/dl (8.5-10.1); Creatinine Clr Calc Pharmacy 57.5 ml/min; Est GFR (African American) 56.5; Est GFR (Non-African American) 48.7; Potassium 4.4 mmol/L (3.5-5.1)
[2020-05-06 19:33] LABS: SARS CoV2 RNA (COVID-19) NOT DETECTED (NOT DETECTED)
--- NOTE | 2020-05-08 11:32 | History and Physical Report ---
DATE OF ADMISSION: 05/11/2020 CHIEF COMPLAINT: Bilateral knee pain and discomfort, left side greater than right. HISTORY OF PRESENT ILLNESS: The patient is a 80-year-old gentleman who is referred by my partner, Dr. Hill for surgical treatment of his knees. He has got a long history of bilateral knee pain and discomfort that has gradually gotten worse over time. The left side is worse than the right. He has been through extensive conservative care, which has not provided much relief anymore. He cannot walk any long distance. He has become less active due to his knee pain. He can walk a couple of blocks max. He has pain going up and down steps. He would like to have his knees fixed. PAST MEDICAL HISTORY: 1. Hypertension. 2. Elevated cholesterol. 3. Low back pain. 4. Gastroesophageal reflux disease. 5. Obesity, BMI of 39. PAST SURGICAL HISTORY: Include: 1. Neck surgery. 2. Back surgery. 3. Pilonidal cyst excision. ALLERGIES: STATINS AND NIFEDIPINE. CURRENT MEDICINES: 1. Tylenol. 2. Allopurinol. 3. Amlodipine/benazepril. 4. Ergocalciferol. 5. Zetia. 6. Hydrochlorothiazide. 7. Metoprolol. 8. Pantoprazole. SOCIAL HISTORY: A 80-year-old male. He is . He lives with his and daughter. Does not smoke. FAMILY HISTORY: Noncontributory. REVIEW OF HISTORY: Negative for diabetes, neurologic problem, vascular problems or bleeding disorders. No chest pain or shortness of breath. No history of DVT or PE. No known bleeding problems. PHYSICAL EXAMINATION GENERAL: Shows a pleasant elderly male. Looks to be in pretty good health. HEENT: Benign. NECK: Supple, no lymphadenopathy. LUNGS: Clear to auscultation. HEART: Regular rate and rhythm. ABDOMEN: Soft, nontender, nondistended. EXTREMITIES: Grossly neurovascularly intact except as follows. Examination of the left knee reveals the patient ambulates independently. He has got varus alignment to his knee with a bit of a varus thrust. He has got a moderate sized knee effusion. Range of motion about 10-15 degrees short of full extension to 115 degrees of flexion. No instability. No pain with hip motion. X-RAYS: X-rays of both knees reveal advanced bilateral knee DJD. He has got complete loss of the medial joint space on both sides. He has got osteophytes in all 3 compartments. ASSESSMENT: A 80-year-old male with advanced bilateral knee degenerative joint disease. He has failed conservative treatment. The left side is bothering more than the right and he would like to consider surgery. PLAN: We will take him to the operating room and do a left total knee replacement. The risks and benefits of this procedure were explained to the patient including but not limited to DVT, PE, , infection, neurological injury, vascular injury, bleeding problem, pain, limited range of motion, stiffness, failure to relieve symptoms, incomplete relief of symptoms, need for further surgery in future, fracture, leg length inequality, nerve palsy, etc. The patient understands and desires to proceed. Informed consent was obtained. As far as discharge plans, he is planning to be discharged to home using [facility]. We did talk to him about taking metoprolol on the morning of surgery and hold the benazepril.
[~2020-05-11 10:15] MED LIST: ACETAMINOPHEN 500 MG TAB PO SCH; BUPIVACAINE 0.5 % 5 MG/1 ML PF 10ML VIAL ONE; BUPIVACAINE LIPOSOME/PF 266 MG, BUPIVACAINE/EPINEPHRINE 50 ML, SODIUM CHLORIDE 0.9% 30 ... INFIL SCH; BUPIVACAINE/EPINEPHRINE 0.25% 1:200,000 30 ML VIAL ONE; CEFAZOLIN 2000MG 2,000 MG/15 ML SYR IV SCH; CEFAZOLIN 3000MG 72.5 ML IV SCH; DEXAMETHASONE SOD INJ 4 MG/ML VIAL ONE; FAMOTIDINE 20 MG TAB PO SCH; GABAPENTIN 300 MG CAP PO SCH; LR 60ML/HR IV SCH; METOCLOPRAMIDE HCL 10 MG TABLET PO SCH
--- NOTE | 2020-05-11 10:19 | History & Physical Bridge Note ---
Date of Service May 11, 2020 History & Physical Bridge Note I have examined the patient, reviewed the History & Physical and in the interval since the performance of the History & Physical I have noted the following changes of clinical significance: no changes noted
[2020-05-11] MEDS ORDERED: PROPOFOL IV EMULSION 10 MG/ML 20 ML VIAL IV ONE (10:50)
[2020-05-11] MEDS ORDERED: fentaNYL citrate 100 MCG/2 ML VIAL ONE ×2 (10:51→12:44)
[2020-05-11] MEDS ORDERED: MIDAZOLAM HCL 1 MG/ML 2ML VIAL ONE (10:51)
[2020-05-11] MEDS: LR 500ML BOLUS, THEN 15ML/HR IV SCH ×2 (11:06→11:09)
[2020-05-11] MEDS ORDERED: ATROPINE SULFATE 0.1 MG/ML 10ML SYR IV PRN (11:48)
[2020-05-11] MEDS ORDERED: ePHEDrine sulfate 50 MG/ML AMP IV PRN (11:48)
[2020-05-11] MEDS ORDERED: ONDANSETRON INJ 2 MG/ML 2 ML VIAL IV PRN ×2 (11:48→16:01)
[2020-05-11] MEDS ORDERED: fentaNYL citrate 100 MCG/2 ML VIAL IV PRN (11:48)
[2020-05-11] MEDS ORDERED: BUPIVACAINE LIPOSOME 1.3% 266 MG/20 ML VIAL ONE (11:52)
[2020-05-11] MEDS ORDERED: EPINEPHrine INJ 1 MG/ML AMP ONE (11:52)
[2020-05-11] MEDS ORDERED: BACITRACIN INJ 50,000 UNIT VIAL ONE (11:52)
[2020-05-11] MEDS ORDERED: SODIUM CHLORIDE 0.9% PF 50 ML VIAL ONE (11:52)
[2020-05-11] MEDS ORDERED: BUPIVACAINE 0.25% 30 ML VIAL ONE (11:53)
[2020-05-11] MEDS ORDERED: TRANEXAMIC ACID / 0.7% NACL 1000MG/100ML BAG IV ONE (13:24)
[2020-05-11] MEDS ORDERED: ePHEDrine sulfate 50 MG/ML SYR ONE ×2 (13:49→14:08)
[2020-05-11] MEDS ORDERED: LIDOCAINE HCL 2% 2 ML VIAL/AMP(20MG/ML) INFIL ONE (14:07)
[2020-05-11] MEDS ORDERED: ONDANSETRON INJ 2 MG/ML 2 ML VIAL ONE (14:08)
[2020-05-11] MEDS ORDERED: GLYCOPYRROLATE 0.2 MG/ML VIAL ONE (14:08)
[2020-05-11] MEDS ORDERED: NEOSTIGMINE METHYLSULFATE 5 MG/5 ML SYR ONE (14:08)
--- NOTE | 2020-05-11 14:15 | Post Operative Brief Note ---
PG Immediate Post Op with CF Date of Surgery May 11, 2020 Pre & Post Diagnosis Operation Date: 05/11/20 12:40 Pre-Op Diagnosis: Left Knee Degenerative Joint Disease Post-Op Diagnosis: Left Knee Degenerative Joint Disease I identified the patient and participated in the time-out.: Yes Procedure Operation Date: 05/11/20 12:40 Actual Procedures p Left Total Knee Arthroplasty, Cemented(Left) - Ramone Turner MD Surgeon Ramone Turner MD Special Collections Librarian Gar[place], [facility] Estimated Blood Loss 50 Findings Consistent with Post-Op Diagnosis Fluids 1400 cc Specimens Specimen Description: Permanent Specimen A: Left knee bone and tissue Anesthesia Type General Complications none Disposition Accompanied Patient To Recovery: No Disposition: Recovery Room
--- NOTE | 2020-05-11 15:13 | XRay Report ---
XR knee LT 1 or 2V routine HISTORY: 80 years-old Male Surgical Post Op left knee total joint arthroplasty COMPARISON: Knee radiographs 04/02/2020 TECHNIQUE: 2 views of the left knee FINDINGS: Left knee total joint arthroplasty and patellar resurfacing. Anterior midline skin donnie are noted along with expected postsurgical soft tissue swelling and deep tissue air or surgical drainage cathet er. No acute fracture or unexpected retained foreign body. Arterial calcifications. IMPRESSION: Left knee total joint arthroplasty and patella resurfacing with expected postoperative ch anges. ACT 112: Negative or not required by law. The above report was generated using voice recognition software. It may contain grammatical, syntax o r spelling errors. Electronically signed by: Deshaun Yen M.D. 05/11/2020 3:12 PM
[2020-05-11] MEDS ORDERED: MAGNESIUM HYDROXIDE SUSP 30 ML UDC PO PRN (16:01)
[2020-05-11] MEDS ORDERED: METOCLOPRAMIDE HCL INJ 5 MG/ML 2 ML VIAL IV PRN (16:01)
[2020-05-11] MEDS ORDERED: HYDROmorphone INJ 0.5 MG/0.5 ML SYR IV PRN (16:01)
[2020-05-11] MEDS ORDERED: NALOXONE HCL 0.4 MG/1 ML VIAL/CARP IV PRN (16:01)
[2020-05-11] MEDS ORDERED: ALUMINUM/MAGNESIUM SUSP 30 ML UDC PO PRN (16:01)
[2020-05-11] MEDS ORDERED: bisacodyL 10 MG SUPP PR PRN (16:01)
[2020-05-11] MEDS ORDERED: OXYCODONE HCL IR 5 MG TAB (IMMEDIATE RELEASE) PO PRN (16:01)
[2020-05-11] MEDS ORDERED: TAMSULOSIN HCL 0.4 MG CAP PO PRN (16:01)
--- NOTE | 2020-05-11 16:06 | Anesthesiology Progress Note ---
Date of Service May 11, 2020 Anesthesia Post Procedure Vital Signs Vital Signs: Temp Pulse Pulse Resp BP BP Pulse Ox 05/11/20 16:00 37.0 C 83 16 149/82 H 94 05/11/20 15:40 70 16 129/77 96 05/11/20 15:30 72 16 125/72 96 05/11/20 15:20 58 L 14 127/68 93 05/11/20 15:10 60 16 121/72 93 05/11/20 15:00 70 18 121/76 94 05/11/20 14:50 66 16 134/78 94 05/11/20 14:40 74 14 120/79 94 05/11/20 14:30 84 18 129/83 94 05/11/20 14:22 36.8 C 75 14 159/95 H 94 05/11/20 11:17 65 16 146/97 H 96 05/11/20 10:49 36.9 C 64 16 163/103 H 95 Transfer of Care Handoff Completed per policy Notes Mental Status: alert / awake / arousable Patient Amnestic to Procedure: Yes Nausea / Vomiting: adequately controlled Pain: adequately controlled Airway Patency, RR, SpO2: stable & adequate BP & HR: stable & adequate Hydration State: stable & adequate Anesthetic Complications: no major complications apparent
--- NOTE | 2020-05-11 16:55 | Operative Report ---
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 He extensive grade 4 [id number] disease the medial and patellofemoral compartments with less severe disease in the lateral compartment. He had a varus knee. Moderate to large knee joint effusion. Fluids 1400 cc. Specimens Left knee sent for pathology. Drains None. Anesthesia Type Spinal MAC Complications none Disposition Accompanied Patient To Recovery: No Disposition: Recovery Room Indications Patient is a 80-year-old gentleman is had a several year history of bilateral knee pain discomfort left side bit worse than the right. He has been through extensive conservative treatment which became less successful over time. X-rays show advanced DJD. He elected proceed with surgical treatment. Description of Procedure Operative implants consisted of: 1. Biomet Vanguard size 70 left posterior stabilized femoral component. 2. Biomet size 75 tibial tray. 3. 10 mm posterior stabilized polyethylene insert. 4. 34 x 8 and half all poly-patella. Patient was taken to the operating room identified and placed on the operating room table in supine position. All contact areas were properly padded. IV antibiotics arrived by anesthesia team. A general anesthetic was implemented at the patient's request as he refused a spinal anesthesia. A left thigh turn was then placed. The left lower extremities and prepped and draped in usual sterile fashion. The left leg was elevated and exsanguinated with use of an Esmarch and turns placed at 300 mmHg. An anterior approach of left knee was then performed to longitudinal incision centered over the patella. Sharp dissection was got through subcutaneous tissue down to the extensor mechanism. A medial parapa tellar arthrotomy incision was made. Some subperiosteal dissection was carried out medially. The fat pad was resected from each patella tendon. Lateral patellofemoral ligament was released. Patella was subluxated laterally and the knee was flexed. The osteophytes were taken off the distal femur. The ACL and PCL were then released from distal femur the tibia subluxate anteriorly. The external tibial alignment jig was then placed in the interface the tibia and adjusted 14 mm medially. Proximal tibial cut was made remove about 2 mm of bone from the most efficient aspect medial tibial plateau. Some osteophytes were taken off medial and posterior medially. The tibia sized to a size 75. Attention drawn the femur. He had distal femur was entered with a sharp drop with intramedullary canal was suction. A left 6 degree valgus cutting guide was placed. The distal femoral cutting block was pinned in place. The distal femoral cut was made to take an additional 3 mm of bone off distal femur. The femur was then sized to a size 70. The AP cutting block was pinned parallel to the epicondylar axis which was 5 degrees of external rotation. The anterior cut, anterior chamfer, posterior cut, posterior chamfer cuts were made. The box cutting guide was placed in just slight lateral and the box cut was made. The knee was flexed. The remnants of the medial lateral menisci were excised. The osteophytes were taken off the posterior aspect of the femur. A trial femoral component was placed. The tibial tray was pinned in maximum external rotation and the drill and stem punch we used to create defect in proximal to for the tibial tray. The knee was then trialed the 10 mm insert fit most appropriately. Attention drawn the patella. The patella was cleaned of all soft tissues. Patella thickness measured 24 mm in thickness was cut down to 15. Was sized to a size 34 patella. The lug holes were drilled for the 34 patella. The lateral osteophyte was removed. Patella button was placed. Knee was taken through range of motion patella tracked nicely with no thumbs test. Attention drawn to place the permanent components. All trial components were removed. Bone plug was placed in the distal femur limit blood loss. A double batch Palacos G cement was mixed. A Biomet Vanguard size 70 Po stabilized femoral component, size 75 tibial tray, a 10 mm posterior stabilized polyethylene insert, and a 34 x 8 and half all poly-patella were then cemented in place. The knee was brought out into full extension total cement hardened. Final cement check was then performed. The pericapsular tissues were injected with a total 100 cc of combination of 20 cc of Exparel, 30 cc normal saline, 80 cc of quarter percent Marcaine with epinephrine. Patient did receive 1 g tranexamic acid per the tourniquet was then let down for final tourniquet time 59 minutes. Hemostasis assured use electrocautery. Extensor mechanism closed with combination 1 PDS suture #1 Vicryl suture in [id number] fashion. Extensor mechanism checked found to be intact the subcutaneous tissue then closed with 2 Dexon suture in a buried interrupted fashion skin was closed skin donnie. Leg was then cleaned and dried and a sterile dressing composed Xeroform, 4 x 4's, sterile cast padding, Franko bandage were applied. Patient then brought out of general incision transferred to the recovery room in stable condition. The patient tolerated the procedure well and there were no complications. Esau Castañeda, my physician health care assistant, was present for the entire procedure. His assistance was required for appropriate patient positioning, prepping and draping, surgical exposure, performing the technical details of the operation, placement of the implants, closure of the wound, and placement of the sterile bandage. I attest to the content of the Intraoperative Record and any orders documented therein. Any exceptions are noted below.
[2020-05-11] MEDS: SODIUM CHLORIDE 0.9% 1000ML 1,000 ML IV SCH ×2 (17:24→21:33)
[2020-05-11] MEDS: KETOROLAC TROMETHAMINE 15 MG/ML VIAL IV SCH ×2 (19:21→23:58)
[2020-05-11] MEDS: ASCORBIC ACID 500 MG TAB PO SCH (19:27)
[2020-05-11] MEDS ORDERED: Nursing to Pharmacy Communication SCH (19:45)
[2020-05-11] MEDS ORDERED: TRANEXAMIC ACID / 0.7% NACL 1,000 MG/100 ML BAG IV SCH (20:15)
[2020-05-11] MEDS: allopurinoL 100 MG TAB PO SCH (21:03)
[2020-05-11] MEDS: ASPIRIN 81 MG ECTAB PO SCH (21:03)
[2020-05-11] MEDS: METOPROLOL SUCC 50MG EXT REL TAB PO SCH (21:03)
[2020-05-11] MEDS: ACETAMINOPHEN 500 MG TAB PO SCH (21:03)
[2020-05-11] MEDS: SENNA 8.6 MG TAB PO SCH (21:03)
[2020-05-11] MEDS: DOCUSATE SODIUM 100 MG CAP PO SCH (21:03)
[2020-05-11] MEDS: TAPENTADOL HCL ER 50 MG TABCR PO SCH (21:24)
[2020-05-11] MEDS: CEFAZOLIN 2000MG 2,000 MG/15 ML SYR IV SCH (21:24)
[2020-05-11] MEDS: PANTOprazole 40 MG TAB PO SCH (21:24)
[2020-05-12] MEDS ORDERED: COUGH DROP (SUGAR FREE) LOZ 24 LOZ/1 BOX BUCCAL PRN (01:07)
[2020-05-12] MEDS: CEFAZOLIN 2000MG 2,000 MG/15 ML SYR IV SCH (03:40)
[2020-05-12] MEDS: ACETAMINOPHEN 500 MG TAB PO SCH ×3 (05:40→22:07)
[2020-05-12] MEDS: KETOROLAC TROMETHAMINE 15 MG/ML VIAL IV SCH ×4 (05:40→23:18)
[2020-05-12 06:11] LABS: Hematocrit (blood only) 41.5 % (42-52); Mean Corpuscular Hemoglobin 31.2 pg (25-34); Mean Corpuscular Hgb Conc 33.7 g/dL (32-36); Mean Corpuscular Volume 92.4 fL (80-100); Mean Platelet Volume 9.4 fL (7.4-10.4); Platelet Count 209 K/uL (130-400); RDW Coefficient of Variation 15.7 % (11.5-14.5); RDW Standard Deviation 53.3 fL (36.4-46.3); Red Blood Count 4.49 M/uL (4.7-6.1); White Blood Count 13.47 K/uL (4.8-10.8)
[2020-05-12 06:39] LABS: BUN Creatinine Ratio 12.6 (10-20); Calcium 8.3 mg/dl (8.5-10.1); Creatinine Clr Calc Pharmacy 60.3 ml/min; Est GFR (African American) 59.6; Est GFR (Non-African American) 51.4; Potassium 4.9 mmol/L (3.5-5.1)
[2020-05-12] MEDS: TAPENTADOL HCL ER 50 MG TABCR PO SCH ×2 (07:56→19:58)
[2020-05-12] MEDS: PANTOprazole 40 MG TAB PO SCH ×2 (07:56→19:54)
[2020-05-12] MEDS: AMLODIPINE BESYLATE 5 MG TAB PO SCH (07:56)
[2020-05-12] MEDS: ASCORBIC ACID 500 MG TAB PO SCH ×2 (07:57→17:31)
[2020-05-12] MEDS: EZETIMIBE 10 MG TABLET PO SCH (07:57)
[2020-05-12] MEDS: DOCUSATE SODIUM 100 MG CAP PO SCH ×2 (07:57→19:53)
[2020-05-12] MEDS: MULTIVITAMIN TAB PO SCH (07:57)
[2020-05-12] MEDS: ASPIRIN 81 MG ECTAB PO SCH ×2 (07:58→19:53)
[2020-05-12] MEDS: ENALAPRIL MALEATE 10 MG TAB PO SCH (07:58)
[2020-05-12] MEDS ORDERED: allopurinoL 100 MG TAB PO SCH (09:00)
--- NOTE | 2020-05-12 09:29 | Progress Notes ---
DATE: 05/12/2020 SUBJECTIVE: A 80-year-old gentleman postop day 1 from left knee replacement. He is doing pretty well. Had good night. Really not much pain yet. No chest pain or shortness of breath. Not feeling dizzy or lightheaded. OBJECTIVE: VITAL SIGNS: Temperature 36.8. Vital signs stable. GENERAL: Physical examination shows a pleasant elderly male. He is sitting up in his bed and looks quite comfortable this morning. LUNGS: Clear to auscultation. HEART: Has a regular rate and rhythm. ABDOMEN: Soft, nontender, nondistended. EXTREMITIES: Grossly neurovascularly intact except as follows. Examination of the left knee reveals the dressing to be clean, dry and intact. He can dorsiflex and plantarflex his foot appropriately. He is neurologically intact. LABORATORY DATA: Hemoglobin is 14.0. Hematocrit 41.5. Electrolytes are stable. ASSESSMENT: A 80-year-old gentleman postop day 1 from a left knee replacement, doing pretty well. His pain is controlled. He is neurologically intact. PLAN: 1. DVT prophylaxis include thigh-high TEDs, SCDs, and aspirin twice a day. 2. PT/OT. Weight bear as tolerated. Left total knee protocol. 3. Pain control, doing pretty well with current pain regimen. 4. Disposition: He is planning to be discharged to home with some home health once adequately recovered and medically stable. We will see how he does in therapy today.
[2020-05-12] MEDS: METOPROLOL SUCC 50MG EXT REL TAB PO SCH (19:54)
[2020-05-12] MEDS: SENNA 8.6 MG TAB PO SCH (19:54)
[2020-05-12] MEDS: allopurinoL 100 MG TAB PO SCH (19:55)
[2020-05-13] MEDS: KETOROLAC TROMETHAMINE 15 MG/ML VIAL IV SCH ×2 (05:47→11:46)
[2020-05-13] MEDS: ACETAMINOPHEN 500 MG TAB PO SCH (05:47)
[2020-05-13] MEDS: TAPENTADOL HCL ER 50 MG TABCR PO SCH (07:46)
[2020-05-13] MEDS: PANTOprazole 40 MG TAB PO SCH (07:46)
[2020-05-13] MEDS: ASPIRIN 81 MG ECTAB PO SCH (07:46)
[2020-05-13] MEDS: EZETIMIBE 10 MG TABLET PO SCH (07:47)
[2020-05-13] MEDS: ASCORBIC ACID 500 MG TAB PO SCH (07:47)
[2020-05-13] MEDS: ENALAPRIL MALEATE 10 MG TAB PO SCH (07:47)
[2020-05-13] MEDS: DOCUSATE SODIUM 100 MG CAP PO SCH (07:47)
[2020-05-13] MEDS: MULTIVITAMIN TAB PO SCH (07:47)
[2020-05-13] MEDS: AMLODIPINE BESYLATE 5 MG TAB PO SCH (07:48)
--- NOTE | 2020-05-13 08:39 | Progress Notes ---
DATE: 05/13/2020 SUBJECTIVE: A 80-year-old gentleman postop day 2 from a left knee replacement. He is doing pretty well. His pain has been controlled. No chest pain or shortness of breath. Not feeling dizzy or lightheaded. OBJECTIVE: VITAL SIGNS: Temperature 36.9. Vital signs stable. GENERAL: Shows a pleasant elderly male. He is sitting up in bed, looks pretty comfortable. EXTREMITIES: Examination of the left leg reveals it to be well aligned. He has just a trace bit of bloody drainage at the inferior aspect of his dressing. He can dorsiflex and plantarflex his foot appropriately. He can do a pretty good straight leg raise. ASSESSMENT: A 80-year-old gentleman postop day 2 from left knee replacement, doing pretty well. Pain controlled. He is neurologically intact. PLAN: 1. DVT prophylaxis including thigh-high TEDs, SCDs, and aspirin twice a day. 2. PT/OT. Weight bear as tolerated. Left total knee protocol. 3. Pain control, doing pretty well with current pain regimen. 4. Disposition: Plan to discharge to home with some home health later today.
--- NOTE | 2020-05-20 06:53 | Discharge Summary ---
Date of Service May 20, 2020 Admission HPI Per Admitting Provider Documented in the H & P Admission Exam (Per Admitting) Constitutional Documented in the H & P Discharge Data Consultations 05/11/20 16:01 Consult Case Management - Discharge Planning Routine Procedures Performed Operation Date: 05/11/20 12:40 Actual Procedures p Left Total Knee Arthroplasty, Cemented(Left) - Ramone Turner MD Hospital Course (1) Status post total left knee replacement: This patient is a 80 year old male admitted on 05/11/20 and underwent total knee arthroplasty. He tolerated the procedure well and there were no complications. Transferred to the PACU post op and later to the orthopedic floor for further care. He was given ancef for antibiotic prophylaxis. He was also given CORAZON stockings, SCDs, and aspirin for DVT prophylaxis. Hemoglobin, hematocrit, and vital signs were monitored during his hospital stay and remained stable. Did not require any blood transfusions. There were no complications during his hospital stay. By post op day #2 the patient was tolerating a regular diet, pain was reasonably controlled with oral pain medicine, and he was participating in physical therapy. On post op day #2 the patient was discharged home and set up with home health care. he was given printed discharge instructions including prescriptions for extra strength tylenol, aspirin, and oxycodone. Continue physical therapy, weight bearing as tolerated. Continue CORAZON stockings. Follow up approximately 2 weeks post op or sooner if there are problems or concerns. Coding Level of Care Code None Diagnoses Status post total left knee replacement Z96.652
[2020-05-27] MEDS ORDERED: ERGOCALCIFEROL 50,000 UNITS CAP PO SCH (09:00)
== END 2020-05-13 13:15 | disposition home health service (06) ==
LOC: 3E 10:15 → ASU 10:15